=== PATIENT | female | born 1965 | race Hispanic/Latino ===

== ENCOUNTER 2017-08-16 07:06 | Emergency (ER) | payer BC ==
[2017-08-16 07:15] VITALS: TEMP 99.1
--- NOTE | 2017-08-16 07:53 | C.PDOC ---
History Of Present Illness 51 year old female presents to the ED c/o vomit, diarrhea and subjective chills that started yesterday. Patient reports having positive sick contact with same symptoms. Patient denies fever, abdominal pain, abdominal cramping, previous surgeries in the abdomen. Time Seen by Provider: 08/16/17 07:23 Chief Complaint (Nursing): GI Problem History Per: Patient History/Exam Limitations: no limitations Onset/Duration Of Symptoms: Days Current Symptoms Are (Timing): Still Present Quality Of Discomfort: "Pain" Associated Symptoms: Vomiting, Diarrhea Exacerbating Factors: None Alleviating Factors: None Recent travel outside of the [place]: No Additional History Per: Patient Abnormal Vaginal Bleeding: No Past Medical History Reviewed: Historical Data, Nursing Documentation, Vital Signs Vital Signs: Last Vital Signs Temp 99.1 F 08/16/17 07:14 Pulse 67 08/16/17 09:46 Resp 16 08/16/17 09:46 BP 149/84 08/16/17 09:46 Pulse Ox 96 08/16/17 09:46 - Medical History PMH: No Chronic Diseases Surgical History: No Surg Hx Family History: States: Unknown Family Hx - Social History Hx Alcohol Use: No Hx Substance Use: No - Immunization History Hx Tetanus Toxoid Vaccination: No Hx Influenza Vaccination: No Hx Pneumococcal Vaccination: No Review Of Systems Constitutional: Negative for: Fever, Chills Cardiovascular: Negative for: Chest Pain Respiratory: Negative for: Cough, Shortness of Breath Gastrointestinal: Positive for: Vomiting, Diarrhea. Negative for: Abdominal Pain Genitourinary: Negative for: Dysuria, Hematuria Musculoskeletal: Negative for: Back Pain Skin: Negative for: Rash Neurological: Negative for: Weakness, Numbness Physical Exam - Physical Exam Appears: Non-toxic, Other (Mildly ill) Skin: Normal Color, Warm, Dry Head: Atraumatic, Normacephalic Eye(s): bilateral: Normal Inspection Nose: No Discharge, No Deformity Oral Mucosa: Moist Neck: Normal ROM, Supple Chest: Symmetrical Cardiovascular: Rhythm Regular, No Murmur Respiratory: Normal Breath Sounds, No Rales, No Rhonchi, No Wheezing Gastrointestinal/Abdominal: Soft, No Tenderness, No Guarding, No Rebound Extremity: Normal ROM, No Deformity, No Swelling Neurological/Psych: Oriented x3, Normal Speech, Normal Cognition Gait: Steady ED Course And Treatment O2 Sat by Pulse Oximetry: 97 (On RA) Pulse Ox Interpretation: Normal Progress - Re-Evaluation Re-evaluation Note: 08/16/17 09:14 PERSIST NAUSEA BUT IMPROVED FROM PRIOR. ABD NEG. VSS. 08/16/17 10:36 FEELS BETTER S/P PHENERGAN - Data Reviewed Data Reviewed: Lab, Old records Medical Decision Making Medical Decision Making: Impression: vomit, diarrhea, subjective chills Plan: * Lomotil 1 tab PO * IV fluids * Zofran 4 mg IVP Disposition Counseled Patient/Family Regarding: Diagnosis, Need For Followup, Rx Given - Disposition Referrals: Count Includes [facility] [Outside] [facility] [Outside] Disposition: HOME/ ROUTINE Disposition Time: 10:36 Condition: IMPROVED Prescriptions: Promethazine [Phenergan] 25 mg PO Q6 PRN #20 tab PRN Reason: Nausea/Vomiting Instructions: Gastroenteritis (ED) Forms: [employer] (Pakistani) - Clinical Impression Clinical Impression: Vomiting and diarrhea - Scribe Statement The provider has reviewed the documentation as recorded by the Scribe Thai Zendejas All medical record entries made by the Scribe were at my direction and personally dictated by me. I have reviewed the chart and agree that the record accurately reflects my personal performance of the history, physical exam, medical decision making, and the department course for this patient. I have also personally directed, reviewed, and agree with the discharge instructions and disposition.
[2017-08-16] MEDS ORDERED: Sodium Chloride 0.9% 1,000 ML IV ONE (07:54)
[2017-08-16] MEDS ORDERED: Atropine-Diphenoxylate 0.025-2.5 mg Tab PO STA (07:54)
[2017-08-16] MEDS ORDERED: Sodium Chloride 0.9% 1,000 ML ONE (08:01)
[2017-08-16] MEDS ORDERED: Atropine-Diphenoxylate 0.025-2.5 mg Tab ONE (08:01)
[2017-08-16 09:47] VITALS: BP 149/84; PULSE 67; RESP 16
[2017-08-16 10:38] VITALS: O2SAT 97
== END 2017-08-16 10:55 | disposition home or self-care (01) ==
LOC: C.ER 07:06
DX: R11.10 Vomiting, unspecified (principal); R19.7 Diarrhea, unspecified
CPT/HCPCS: 96361; 96372; 96374; 99285; J2405; J2550; J7040